=== PATIENT | female | born 1975 | race Caucasian/White ===

== ENCOUNTER 2019-03-08 19:28 | Emergency (ER) | payer BC ==
[2019-03-08] MEDS ORDERED: HYDROmorphone 0.5 MG/0.5 ML Syringe IVPUSH ONE ×2 (20:18→21:43)
[2019-03-08] MEDS ORDERED: Ketorolac 30 MG/ML SDV IVPUSH ONE (20:18)
[2019-03-08] MEDS ORDERED: Ondansetron 4 MG/2 ML SDV IVPUSH ONE (20:19)
--- NOTE | 2019-03-08 20:25 | EDM.PDOC ---
ED HPI GENERAL MEDICAL PROBLEM - General Chief Complaint: Flank Pain Stated Complaint: RIGHT PAIN (KIDNEY PAIN) Time Seen by Provider: 03/08/19 20:10 Source of Information: Reports: Patient History Limitations: Reports: Other (no old records) - History of Present Illness INITIAL COMMENTS - FREE TEXT/NARRATIVE: 43 yo female here with a progressive 3 d hx of LLQ abdominal pain. Urine is dark. No fever. Has mild nausea. Was getting relief with ibuprofen initially. Pain began before leaving home in [place]. No hx of the same. Onset: Gradual Onset Date: 03/05/19 Duration: Day(s): (3), Getting Worse Location: Reports: Abdomen (LLQ) Quality: Reports: Stabbing Severity: Severe Improves with: Reports: None Worsens with: Reports: Other (time) Context: Reports: Other (See HPI) Associated Symptoms: Reports: Nausea/Vomiting (no vomiting). Denies: Fever/ Chills Treatments T[employer]ER: Reports: NSAIDS Left Flank Pain Score (Numeric/FACES): 9 - Related Data Allergies Allergy/AdvReac Type Severity Reaction Status Date / Time erythromycin base Allergy Hives Verified 03/08/19 20:37 Home Meds: Home Meds Ciprofloxacin HCl [Cipro] 500 mg PO Q12H #14 tablet 03/08/19 [Rx] FLUoxetine HCl [Prozac] 20 mg PO DAILY 03/08/19 [History] Gabapentin [Neurontin] 300 mg PO BEDTIME 03/08/19 [History] traZODone HCl [Trazodone HCl] 100 mg PO BEDTIME 03/08/19 [History] ED ROS GENERAL - Review of Systems Review Of Systems: See Below Constitutional: Reports: No Symptoms HEENT: Reports: No Symptoms Respiratory: Reports: No Symptoms Cardiovascular: Reports: No Symptoms GI/Abdominal: Reports: Abdominal Pain, Nausea. Denies: Black Stool, Bloody Stool, Constipation, Diarrhea, Distension, Flatus, Hematemesis, Hematochezia, Vomiting : Reports: Other (dark urine). Denies: Dysuria Skin: Reports: No Symptoms Neurological: Reports: No Symptoms ED EXAM, GI/ABD - Physical Exam Exam: See Below Exam Limited By: No Limitations General Appearance: Alert, WD/WN, Mild Distress, Obese Eyes: Bilateral: Normal Appearance Ears: Normal External Exam, Normal Canal, Hearing Grossly Normal Nose: Normal Inspection, No Blood Throat/Mouth: Normal Inspection, Normal Lips, Normal Oropharynx, Normal Voice, No Airway Compromise Head: Atraumatic, Normocephalic Neck: Normal Inspection Respiratory/Chest: No Respiratory Distress, Lungs Clear, Normal Breath Sounds, No Accessory Muscle Use Cardiovascular: Regular Rate, Rhythm, No Edema GI/Abdominal Exam: Soft, Non-Tender, No Distention, Abnormal Bowel Sounds ( decreased). No: Distended, Hernia Extremities: Normal Inspection, Normal Range of Motion, Non-Tender, No Pedal Edema Neurological: Alert, Oriented, CN II-XII Intact, Normal Cognition, No Motor/ Sensory Deficits Psychiatric: Normal Affect, Normal Mood Skin Exam: Warm, Dry, Intact, Normal Color, No Rash Course - Vital Signs Last Recorded V/S: Last Vital Signs Temp 37.6 C 03/08/19 20:23 Pulse 88 03/08/19 20:39 Resp 14 03/08/19 20:39 BP 136/97 H 03/08/19 20:39 Pulse Ox 99 03/08/19 20:39 - Orders/Labs/Meds Orders: Active Orders 24 hr Category Date Time Status CULTURE URINE [RM] Stat Lab 03/08/19 21:28 Received Lactated Ringers [Ringers, Lactated] 1,000 ml Med 03/08/19 20:30 Active IV ASDIRECTED Medication Orders Lactated Ringer's (Ringers, Lactated) 1,000 mls @ 500 mls/hr IV ASDIRECTED MORGAN Last Admin: 03/08/19 20:28 Dose: 500 mls/hr Labs: Laboratory Tests 03/08/19 03/08/19 03/08/19 Range/Units 20:24 22:18 22:18 WBC 13.2 H (4.5-11.0) K/uL RBC 4.01 (3.30-5.50) M/uL Hgb 12.5 (12.0-15.0) g/dL Hct 37.9 (36.0-48.0) % MCV 95 (80-98) fL MCH 31 (27-31) pg MCHC 33 (32-36) % Plt Count 243 (150-400) K/uL Neut % (Auto) 72 H (36-66) % Lymph % (Auto) 15 L (24-44) % [place] % (Auto) 12 H (2-6) % Eos % (Auto) 1 L (2-4) % Baso % (Auto) 0 (0-1) % Sodium 137 L (140-148) mmol/L Potassium 3.6 (3.6-5.2) mmol/L Chloride 103 (100-108) mmol/L Carbon Dioxide 26 (21-32) mmol/L Anion Gap 11.6 (5.0-14.0) mmol/L BUN 17 (7-18) mg/dL Creatinine 1.2 H (0.6-1.0) mg/dL Est Cr Clr Drug Dosing 52.74 mL/min Estimated GFR (MDRD) 49 L (>60) Glucose 111 H (74-106) mg/dL Calcium 8.3 L (8.5-10.1) mg/dL C-Reactive Protein 7.46 H (0.0-0.3) mg/dL Urine Color Yellow Urine Appearance Cloudy Urine pH 8.0 (4.5-8.0) Ur Specific Ryan 1.010 (1.008-1.030) Urine Protein 100 H (NEGATIVE) mg/dL Urine Glucose (UA) Normal (NEGATIVE) mg/dL Urine Ketones Negative (NEGATIVE) mg/dL Urine Occult Blood Large (NEGATIVE) Urine Nitrite Positive H (NEGATIVE) Urine Bilirubin Negative (NEGATIVE) Urine Urobilinogen Normal (NORMAL) mg/dL Ur Leukocyte Esterase Small (NEGATIVE) Urine RBC Packed H (0-5) Urine WBC 5-10 H (0-5) Ur Epithelial Cells Rare Amorphous Sediment Not seen Urine Bacteria Many Urine Mucus Not seen Meds: Medications Generic Name Dose Route Start Last Admin Trade Name Freq PRN Reason Stop Dose Admin Lactated Ringer's 1,000 mls @ 500 mls/hr 03/08/19 20:30 03/08/19 20:28 Ringers, Lactated IV 500 mls/hr ASDIRECTED MORGAN Administration Discontinued Medications Generic Name Dose Route Start Last Admin Trade Name Freq PRN Reason Stop Dose Admin Hydrocodone Bitart/Acetaminophen 2 tab 03/08/19 22:52 03/08/19 23:10 [place] 325-5 Mg PO 03/08/19 22:53 2 tab ONETIME ONE Administration Ciprofloxacin 250 mg 03/08/19 21:26 03/08/19 21:49 Ciprofloxacin Hcl PO 03/08/19 21:27 250 mg ONETIME ONE Administration Ciprofloxacin 250 mg 03/08/19 22:44 03/08/19 23:12 Ciprofloxacin Hcl PO 03/08/19 22:45 250 mg ONETIME ONE Administration Hydromorphone HCl 0.5 mg 03/08/19 20:18 03/08/19 20:32 Dilaudid IVPUSH 03/08/19 20:19 0.5 mg ONETIME ONE Administration Hydromorphone HCl 0.5 mg 03/08/19 21:43 03/08/19 21:51 Dilaudid IVPUSH 03/08/19 21:44 0.5 mg ONETIME ONE Administration Ceftriaxone Sodium 1 gm/ 50 mls @ 100 mls/hr 03/08/19 22:43 03/08/19 23:09 Sodium Chloride IV 03/08/19 23:12 100 mls/hr ONETIME ONE Administration Ketorolac Tromethamine 30 mg 03/08/19 20:18 03/08/19 20:28 Toradol IVPUSH 03/08/19 20:19 30 mg ONETIME ONE Administration Ondansetron HCl 4 mg 03/08/19 20:19 03/08/19 20:29 Zofran IVPUSH 03/08/19 20:20 4 mg ONETIME ONE Administration Tamsulosin HCl 0.4 mg 03/08/19 21:27 03/08/19 21:50 Flomax PO 03/08/19 21:28 0.4 mg ONETIME ONE Administration - Radiology Interpretation Free Text/Narrative:: abd/pelvis without contrast-neg CT Results Date: 03/08/19 Departure - Departure Time of Disposition: 23:55 Disposition: Home, Self-Care 01 Condition: Fair Clinical Impression: UTI, Urinary tract infectious disease - Discharge Information *PRESCRIPTION DRUG MONITORING PROGRAM REVIEWED*: No *COPY OF PRESCRIPTION DRUG MONITORING REPORT IN PATIENT DENITA: No Prescriptions: Ciprofloxacin HCl [Cipro] 500 mg PO Q12H #14 tablet Instructions: Urinary Tract Infection, Adult Referrals: PCP,None [Primary Care Provider] - Forms: ED Department Discharge Additional Instructions: Take ciprofloxacin 500 mg every 12 hrs. Take ibuprofen 400 mg every 6 hrs with food. Add either acetaminophen or [place] for added pain relief. Drink ample fluids. Rest. Recheck in urgent care in 2-3 days to review your urine culture results. Return to the ER if you are worse in the interim. - My Orders Last 24 Hours: My Active Orders 03/08/19 20:30 Lactated Ringers [Ringers, Lactated] 1,000 ml IV ASDIRECTED 03/08/19 21:28 CULTURE URINE [RM] Stat - Assessment/Plan Last 24 Hours: My Active Orders 03/08/19 20:30 Lactated Ringers [Ringers, Lactated] 1,000 ml IV ASDIRECTED 03/08/19 21:28 CULTURE URINE [] Stat
[2019-03-08] MEDS ORDERED: Lactated Ringers 1,000 ML IV SCH (20:30)
[2019-03-08] MEDS ORDERED: Ciprofloxacin 500 MG Tab PO ONE ×2 (21:26→22:44)
[2019-03-08] MEDS ORDERED: Tamsulosin 0.4 MG Cap.ER PO ONE (21:27)
--- NOTE | 2019-03-08 22:00 | CRLCT ---
INDICATION: Left lower quadrant pain. TECHNIQUE: Nonenhanced volumetric CT scans of the abdomen/pelvis with multiplanar reconstructions. COMPARISON: None. FINDINGS: Lower chest is unremarkable. Liver, spleen, adrenal glands, and pancreas have a normal noncontrast appearance. Gallbladder is present, and demonstrates no calcified stones. There is no biliary enlargement. Nonobstructed, nonspecific bowel pattern including normal appendix. Subtle low-attenuation area in the anterior lower right kidney which could represent a small cyst. No calculi/hydronephrosis. The left kidney contains a nonobstructive 3-4 mm calcified stone at the inferior pole and a small cyst at the inferior pole. Slight fullness of the left renal pelvis, both ureters appear normal in course and caliber with no ureteral/urinary bladder calculi identified. Hysterectomy. No adnexal mass. No free fluid accumulation within the pelvis. No evidence of ascites. No subdiaphragmatic free air/inflammatory change identified. Postoperative change L4-5 level. No acute/aggressive osseous lesions identified. IMPRESSION: 1. No acute abnormalities identified. No etiology identified for cause of left lower quadrant pain. 2. Nonobstructive intrarenal calculus left kidney. Small bilateral renal cysts are suggested, consider renal ultrasound for confirmation. 3. Postoperative changes L4-5. 4. Hysterectomy. Please note that all CT scans at this facility use dose modulation, iterative reconstruction, and/or weight-based dosing when appropriate to reduce radiation dose to as low as reasonably achievable. Dictated by Marky Garnica MD @ Mar 08 2019 9:47PM Signed by Dr. Marky Garnica @ Mar 08 2019 9:58PM
[2019-03-08] MEDS ORDERED: cefTRIAXone 1 GM in Sodium Chloride 0.9% 50 ML IV ONE (22:43)
[2019-03-08] MEDS ORDERED: Acetaminophen/HYDROcodone 325-5 MG Tab PO ONE (22:52)
== END 2019-03-09 00:10 | disposition home or self-care (01) ==
LOC: JP.ED 19:28
DX: N39.0 Urinary tract infection, site not specified (principal); Z88.1 Allergy status to other antibiotic agents; Z79.899 Other long term (current) drug therapy
CPT/HCPCS: 36415; 74176; 80048; 81001; 85025; 86140; 87086; 87088; 87186; 96361; 96365; 96375; 96376; 99284; A9270; J0696; J1170; J1885; J2405; J7050; J7120